=== PATIENT | male | born 1950 | race Caucasian/White ===

== ENCOUNTER → 2017-09-02 | Outpatient (CLI) | payer MEDICARE | LOC: COL.RAD 09:24 | DX: Z13.6 Encounter for screening for cardiovascular disorders (principal); I77.811 Abdominal aortic ectasia; Z87.891 Personal history of nicotine dependence ==

== ENCOUNTER → 2017-11-25 | Outpatient (CLI) | payer MEDICARE | LOC: COL.RAD 09:24 | DX: D47.2 Monoclonal gammopathy (principal) ==

== ENCOUNTER 2020-01-16 12:34 | Emergency (ER) | payer MEDICARE ==
[~2020-01-16] VITALS: Ht 182.9 cm; Wt 111.4 kg
[2020-01-16 12:38] VITALS: TEMP 97.5
[2020-01-16 13:12] LABS: BASO # 0.1 (0.0-0.2); EOS # 0.3 (0.0-0.7); EOS % 3.7 % (0-4.0); GRAN # 4.8 (1.4-6.5); HEMATOCRIT 48.5 % (42.0-52.0); HEMOGLOBIN 16.9 g/dl (13.5-18.0); LYMPH % 25.1 % (20.0-51.0); MEAN CELL VOLUME 87 fl (80.0-100.0); MEAN CORPUSCULAR HEMOGLOBIN 30 pg (27.0-31.0); MEAN CORPUSCULAR HGB CONC 35 g/dl (33.0-37.0); MEAN PLATELET VOLUME 12.4 fl (7.4-10.4); MONO # 0.9 (0.1-0.6); PLATELET COUNT 204 K/mm3 (130-400); RED BLOOD COUNT 5.57 M/mm3 (4.20-5.60); REDCELL DISTRIBUTION WIDTH-CV 11.9 % (11.5-14.5)
[2020-01-16 13:22] LABS: ALANINE AMINOTRANSFERASE 22 U/L (4-49); ALBUMIN 4.4 gm/dL (3.5-5.0); ALKALINE PHOSPHATASE 81 U/L (50-136); ANION GAP 13 mmol/L (7-16); AST,SGOT 24 U/L (15-37); BILIRUBIN,TOTAL 0.7 mg/dL (0.0-1.0); BLOOD UREA NITROGEN 26 mg/dL (9-20); CALCIUM 9.4 mg/dL (8.4-10.2); CARBON DIOXIDE 26 mmol/L (22-30); CHLORIDE 97 mmol/L (98-107); CREATININE, serum 1.11 (0.66-1.25); GLUCOSE 134 mg/dL (74-106); POTASSIUM 3.7 mmol/L (3.4-5.0); SODIUM 137 mmol/L (137-145); TOTAL PROTEIN 7.4 gm/dL (6.4-8.2)
[2020-01-16 13:34] LABS: TROPONIN-I < 0.012 ng/mL (0.000-0.035)
[2020-01-16] MEDS ORDERED: ELIQUIS 5MG PO (15:09)
[2020-01-16] MEDS ORDERED: CARTIA XT180 MG PO (15:10)
[2020-01-16 15:23] VITALS: BP 112/96; PULSE 86
== END 2020-01-16 15:25 | disposition home or self-care (01) ==
LOC: COL.ER 12:34
PROVIDERS: Emergency Medicine
DX: I48.20 Chronic atrial fibrillation, unspecified (principal)
CPT/HCPCS: J7040

== ENCOUNTER 2020-03-10 07:06 | Day surgery (SDC) | payer MEDICARE ==
[~2020-03-10] VITALS: Ht 183 cm; Wt 114.0 kg
[2020-03-10] VITALS (69 sets, daily range): BP systolic 120–149; BP diastolic 81–112; PULSE 78–104; TEMP 98.1; O2SAT 94–97
[~2020-03-10 07:06] MED LIST: CARTIA XT180 MG PO; ELIQUIS 5MG PO
[2020-03-10] MEDS ORDERED: ELIQUIS 5MG PO (07:56)
[2020-03-10] MEDS ORDERED: ASPIRIN E.C. 8181 MG PO (07:56)
[2020-03-10] MEDS ORDERED: NORVASC 10MG10 MG PO (07:56)
[2020-03-10] MEDS ORDERED: GLUCOTROL 5M5 MG/TAB PO (07:58)
[2020-03-10] MEDS ORDERED: TAMBOCOR150 MG PO (07:58)
[2020-03-10] MEDS ORDERED: GLUCOPHAGE1000 MG PO (08:03)
[2020-03-10] MEDS ORDERED: HCTZ 25MG TAB25 MG PO (08:03)
[2020-03-10] MEDS ORDERED: PRILOSEC 20MG20 MG PO (08:04)
[2020-03-10] MEDS ORDERED: ONGLYZA5 MG PO (08:07)
[2020-03-10] MEDS ORDERED: TRULICITY1.5 MG/0.5 SQ (08:08)
[2020-03-10] MEDS ORDERED: SINGULAIR 110 MG/TAB PO (08:08)
[2020-03-10 08:27] LABS: HEMATOCRIT 45.6 % (42.0-52.0); HEMOGLOBIN 15.5 g/dl (13.5-18.0); MEAN CELL VOLUME 88 fl (80.0-100.0); MEAN CORPUSCULAR HEMOGLOBIN 30 pg (27.0-31.0); MEAN CORPUSCULAR HGB CONC 34 g/dl (33.0-37.0); MEAN PLATELET VOLUME 11.6 fl (7.4-10.4); PLATELET COUNT 198 K/mm3 (130-400); RED BLOOD COUNT 5.18 M/mm3 (4.20-5.60); REDCELL DISTRIBUTION WIDTH-CV 12.1 % (11.5-14.5)
[2020-03-10 08:37] LABS: CALCIUM 9.3 mg/dL (8.4-10.2); CREATININE, serum 0.95 (0.66-1.25); MAGNESIUM 1.5 mg/dL (1.6-2.3); POTASSIUM 4.2 mmol/L (3.4-5.0)
[2020-03-10 08:38] LABS: INR 1.3 (0.8-3.0); PROTHROMBIN TIME 14.6 SECONDS (9.7-12.8)
[2020-03-10 08:41] LABS: PARTIAL THROMBOPLASTIN TIME 39.1 SECONDS (26.0-37.0)
[2020-03-10 09:08] LABS: THYROID STIMULATING HORMONE 0.933 uIU/mL (0.465-4.680)
[2020-03-10] MEDS ORDERED: CEPHALEXIN500 M1 PO (09:38)
== END 2020-03-10 10:21 | disposition home or self-care (01) ==
LOC: COL.CAR 07:06
PROVIDERS: Internal Medicine Cardiovascular Disease
DX: I48.0 Paroxysmal atrial fibrillation (principal); I10 Essential (primary) hypertension; E11.9 Type 2 diabetes mellitus without complications; K21.9 Gastro-esophageal reflux disease without esophagitis; G47.33 Obstructive sleep apnea (adult) (pediatric); Z20.828 Contact with and (suspected) exposure to other viral communicable diseases; E66.9 Obesity, unspecified; Z68.33 Body mass index [BMI] 33.0-33.9, adult; Z88.8 Allergy status to other drugs, medicaments and biological substances; Z87.891 Personal history of nicotine dependence; Z82.49 Family history of ischemic heart disease and other diseases of the circulatory system; Z79.01 Long term (current) use of anticoagulants; Z79.84 Long term (current) use of oral hypoglycemic drugs; Z79.82 Long term (current) use of aspirin
CPT/HCPCS: J2704

== ENCOUNTER → 2021-03-26 | Outpatient (CLI) | payer MEDICARE ==
[~2021-03-26] VITALS: Ht 183 cm; Wt 109.2 kg
[~2021-03-26] MED LIST changes: +ACTOS30 MG PO; +ALDACTONE 25MG25 M1 PO; +ASPIRIN E.C. 8181 MG PO; +CALCIUM 600600 MG PO; +CEPHALEXIN500 M1 PO; +FLOMAX 0.40.4 MG/CAP PO; +GLUCOPHAGE1000 MG PO; +GLUCOTROL 5M5 MG/TAB PO; +HCTZ 25MG TAB25 MG PO; +MASON NATURAL2000 IU PO; +NORCO 325 MG-7.1 TAB PO; +NORVASC 10MG10 MG PO; +ONGLYZA5 MG PO; +PLAVIX 75MG TAB75 MG PO; +PREDNISONE 5MG5 MG PO; +PRILOSEC 20MG20 MG PO; +SINGULAIR 110 MG/TAB PO; +TAMBOCOR150 MG PO; +TOPROL XL 50MG50 MG PO; +TRULICITY1.5 MG/0.5 SQ
[2021-03-26 07:25] VITALS: BP 134/86; PULSE 85; TEMP 97.8
[2021-03-26 08:10] VITALS: BP 150/86; PULSE 81
== END ==
LOC: COL.RAD 07:00
DX: M51.16 Intervertebral disc disorders with radiculopathy, lumbar region (principal); M48.061 Spinal stenosis, lumbar region without neurogenic claudication
CPT/HCPCS: J3301

== ENCOUNTER → 2021-06-02 | Outpatient (CLI) | payer MEDICARE | LOC: ZCOL.LAB 17:08 | DX: R05.1 Acute cough (principal); R09.81 Nasal congestion; Z20.822 Contact with and (suspected) exposure to COVID-19 ==

== ENCOUNTER → 2021-06-17 | Outpatient (CLI) | payer MEDICARE | LOC: ZCOL.LAB 15:34 | DX: Z20.822 Contact with and (suspected) exposure to COVID-19 (principal) ==

== ENCOUNTER → 2021-07-22 | Outpatient (CLI) | payer MEDICARE ==
[~2021-07-22] VITALS: Ht 182.9 cm; Wt 108.2 kg
[2021-07-22 08:59] VITALS: BP 130/80; PULSE 70; TEMP 97.9
[2021-07-22 09:30] VITALS: BP 143/88; PULSE 74
== END ==
LOC: COL.RAD 08:35
DX: M51.16 Intervertebral disc disorders with radiculopathy, lumbar region (principal)
CPT/HCPCS: J3301

== ENCOUNTER 2023-08-15 13:40 | Emergency (ER) | payer MEDICARE ==
[~2023-08-15] VITALS: Ht 182.9 cm; Wt 93.2 kg
[2023-08-15 13:48] VITALS: TEMP 97.6
[2023-08-15 19:53] LABS: BASO # 0.1 K/mm3 (0.0-0.2); BASO % 0.9 % (0.0-2.0); EOS # 0.2 K/mm3 (0.0-0.7); EOS % 1.9 % (0.0-4.0); GRAN # 7.5 K/mm3 (1.4-6.5); HEMATOCRIT 46.3 % (42.0-52.0); HEMOGLOBIN 15.5 g/dl (13.5-18.0); LYMPH # 1.8 K/mm3 (1.2-3.4); LYMPH % 17.3 % (20.0-51.0); MEAN CELL VOLUME 89 fl (80.0-100.0); MEAN CORPUSCULAR HEMOGLOBIN 30 pg (27-31); MEAN CORPUSCULAR HGB CONC 34 g/dl (33.0-37.0); MEAN PLATELET VOLUME 11.9 fl (7.4-10.4); MONO # 0.6 K/mm3 (0.1-0.6); MONO % 5.6 % (1.7-9.3); PLATELET COUNT 160 K/mm3 (130-400); RED BLOOD COUNT 5.18 M/mm3 (4.20-5.60); REDCELL DISTRIBUTION WIDTH-CV 12.7 % (11.5-14.5)
[2023-08-15 20:13] LABS: ALANINE AMINOTRANSFERASE 17 U/L (0-55); ALBUMIN 3.7 gm/dL (3.4-4.8); ALKALINE PHOSPHATASE 101 U/L (40-150); ANION GAP 11 mmol/L (7-16); AST,SGOT 16 U/L (5-34); BILIRUBIN,TOTAL 0.3 mg/dL (0.2-1.2); BLOOD UREA NITROGEN 19 mg/dL (8-26); CALCIUM 9.3 mg/dL (8.4-10.2); CHLORIDE 102 mmol/L (98-107); CREATININE, serum 1.06 mg/dL (0.72-1.25); GLUCOSE 195 mg/dL (70-99); POTASSIUM 3.9 mmol/L (3.5-4.5); SODIUM 137 mmol/L (136-145); TOTAL PROTEIN 6.5 gm/dL (6.2-8.1)
[2023-08-15 20:17] LABS: TROPONIN-I < 0.010 ng/mL (0.00-0.033)
[2023-08-15 21:10] VITALS: BP 124/84; PULSE 64
== END 2023-08-15 21:06 | disposition home or self-care (01) ==
LOC: COL.ER 13:40
PROVIDERS: Nurse Practitioner
DX: R61 Generalized hyperhidrosis (principal); R11.0 Nausea; F17.200 Nicotine dependence, unspecified, uncomplicated